=== PATIENT | female | born 1950 | race Caucasian/White ===

== ENCOUNTER → 2017-07-28 | Outpatient (CLI) | payer MEDICARE, OTHER ==
[~2017-07-28] MED LIST: AMLO5 PO; ASCO500 PO; ASPI81EC PO; ATEN50 PO; CHOL10002 PO; CIPR500 PO; CRUTCH4 USE; CVS SENNA PLUS1 EACH PO; Co Q-10100 MG PO; EDARBI40 MG PO; ERGO400 PO; FEBU40TA PO; FERR325 PO; FISH1000 PO; FLUO10 PO; FURO40 PO; FURO80 PO; GABA100 PO; GABA300 PO; HYDACE5 PO; Humalog100 UNIT/1 SC; IBAN2.5 PO; INSULANPEN SC; LEVSOD100 PO; LEVSOD125 PO; LISI5 PO; Lantus100 UNIT/1 SC; METO2.5 PO; METR500 PO; NIAC500 PO; PRAV20 PO; PROM25 PO; Pravachol40 MG PO
== END | disposition home or self-care (01) ==
LOC: LAB 14:13
DX: R30.0 Dysuria (principal)
CPT/HCPCS: 87086

== ENCOUNTER → 2017-08-17 | Outpatient (CLI) | payer MEDICARE, OTHER | END | disposition home or self-care (01) | LOC: LAB 16:52 | DX: N39.0 Urinary tract infection, site not specified (principal) | CPT/HCPCS: 87086 ==

== ENCOUNTER 2017-09-21 12:45 | Day surgery (SDC) | payer MEDICARE, OTHER ==
[~2017-09-21] VITALS: Ht 154.9 cm; Wt 100.6 kg
== END 2017-09-21 15:20 | disposition home or self-care (01) ==
LOC: ORSCSDS 12:45
PROVIDERS: Internal Medicine Gastroenterology
PROC: 0DBK8ZX Excision of Ascending Colon, Via Natural or Artificial Opening Endoscopic, Diagnostic (ICD-10-PCS; principal; 2017-09-21 14:00)
PROC: 0DBL8ZX Excision of Transverse Colon, Via Natural or Artificial Opening Endoscopic, Diagnostic (ICD-10-PCS; principal; 2017-09-21 14:00)
PROC: 0DBC8ZX Excision of Ileocecal Valve, Via Natural or Artificial Opening Endoscopic, Diagnostic (ICD-10-PCS; principal; 2017-09-21 14:00)
DX: Z12.11 Encounter for screening for malignant neoplasm of colon (principal); D12.2 Benign neoplasm of ascending colon; D12.3 Benign neoplasm of transverse colon; K63.5 Polyp of colon; K64.8 Other hemorrhoids; K57.30 Diverticulosis of large intestine without perforation or abscess without bleeding; E11.22 Type 2 diabetes mellitus with diabetic chronic kidney disease; I12.9 Hypertensive chronic kidney disease with stage 1 through stage 4 chronic kidney disease, or unspecified chronic kidney disease; N18.9 Chronic kidney disease, unspecified; E78.5 Hyperlipidemia, unspecified; E03.9 Hypothyroidism, unspecified; I50.9 Heart failure, unspecified; Z87.891 Personal history of nicotine dependence; Z79.82 Long term (current) use of aspirin; Z79.4 Long term (current) use of insulin; Z79.899 Other long term (current) drug therapy; E66.01 Morbid (severe) obesity due to excess calories; Z68.41 Body mass index [BMI] 40.0-44.9, adult
CPT/HCPCS: 82947; 88305; J1980; J7120

== ENCOUNTER 2019-03-17 11:28 | Day surgery (SDC) | payer MEDICARE ==
[~2019-03-17] VITALS: Ht 152.4 cm; Wt 125.1 kg
[~2019-03-17 11:28] MED LIST changes: +B Complex #11 EACH PO; +Bumetanide1 MG PO; +FISH OIL + D31 EACH PO
== END 2019-03-17 13:41 | disposition home or self-care (01) ==
LOC: ORSCSDS 11:28
PROVIDERS: Internal Medicine Gastroenterology
PROC: 0DBK8ZX Excision of Ascending Colon, Via Natural or Artificial Opening Endoscopic, Diagnostic (ICD-10-PCS; principal; 2019-03-17 13:00)
DX: Z12.11 Encounter for screening for malignant neoplasm of colon (principal); Z86.010 Personal history of colon polyps; D12.2 Benign neoplasm of ascending colon; K57.30 Diverticulosis of large intestine without perforation or abscess without bleeding; K64.8 Other hemorrhoids; E11.9 Type 2 diabetes mellitus without complications; E66.01 Morbid (severe) obesity due to excess calories; Z68.43 Body mass index [BMI] 50.0-59.9, adult
CPT/HCPCS: 82947; 88305; J2704; J7120

== ENCOUNTER → 2021-07-30 | Outpatient (CLI) | payer MEDICARE, OTHER ==
[2021-07-30 14:04] LABS: Thyroxine (T4) 9.2 ug/dL (4.8-13.9)
[2021-07-30 14:05] LABS: Albumin, Blood 3.3 g/dL (3.4-5.0); Anion Gap 5 mmol/L (6-16); Blood Urea Nitrogen 33 mg/dL (8-24); Bun/Creatinine Ratio 22.3 (12.0-20.0); CO2, Blood 33 mmol/L (21-32); Calcium, Blood 9.4 mg/dL (8.5-10.1); Chloride, Blood 101 mmol/L (98-108); Creatinine, Blood 1.48 mg/dL (0.40-1.00); Glomerular Filtration Rate 35 (60-); Glucose, Blood 221 mg/dL (70-99); Phosphorus, Blood 2.7 mg/dL (2.5-4.9); Sodium, Blood 139 mmol/L (136-145)
[2021-07-30 14:09] LABS: Alanine Aminotransfer (ALT/SGP 31 U/L (12-78); Albumin, Blood 3.2 g/dL (3.4-5.0); Albumin/Globulin Ratio 0.9 (0.8-1.8); Alk Phos 95 U/L (50-136); Anion Gap 7 mmol/L (6-16); Aspartate Aminotrans (AST/SGOT 20 U/L (12-37); Bilirubin, Total 0.5 mg/dL (0.1-1.0); Blood Urea Nitrogen 35 mg/dL (8-24); CHOL/HDL RATIO 4.2; CO2, Blood 32 mmol/L (21-32); Calcium, Blood 9.7 mg/dL (8.5-10.1); Chloride, Blood 100 mmol/L (98-108); Cholesterol 193 mg/dL (50-200); Globulin, Blood 3.4 g/dL (2.2-4.0); Glomerular Filtration Rate 37 (60-); Glucose, Blood 215 mg/dL (70-99); HDL Cholesterol 46 mg/dL (>39); LDL/HDL RATIO 1.9; Low Density Lipoprotein Chol 89 mg/dL (0-110); Potassium, Blood 4.9 mmol/L (3.5-5.5); Sodium, Blood 139 mmol/L (136-145); Total Protein, Blood 6.6 g/dL (6.4-8.2); Triglycerides 288 mg/dL (30-160); Very Low Density Lipoprot Chol 57 mg/dL (6-32)
== END | disposition home or self-care (01) ==
LOC: LAB SHORT 11:05
PROVIDERS: Family Medicine; Internal Medicine Nephrology
DX: E11.22 Type 2 diabetes mellitus with diabetic chronic kidney disease (principal); N18.30 Chronic kidney disease, stage 3 unspecified; D63.1 Anemia in chronic kidney disease; E03.9 Hypothyroidism, unspecified; R76.9 Abnormal immunological finding in serum, unspecified; R94.5 Abnormal results of liver function studies; R94.6 Abnormal results of thyroid function studies
CPT/HCPCS: 80053; 80061; 80069; 83036; 84100; 84436; 84443; 84480; 85018

== ENCOUNTER 2024-08-18 06:43 | Day surgery (SDC) | payer MEDICARE, OTHER ==
[~2024-08-18 06:43] MED LIST changes: -ATEN50 PO; -Bumetanide1 MG PO; +DULO30 PO; +ELDERBERRY350 MG PO; +FAMO40 PO; +INSULANI SC; -INSULANPEN SC; -LEVSOD125 PO; +LEVSOD150 PO; +Lactated Ringer's 1,000 ML IV SCH; +METO25ER; +PRENATAL TABLE1 EAC2 PO; -Pravachol40 MG PO; +TORSE20 PO; +propofoL 50 ML IV ONE
[2024-08-18 07:15] VITALS: BP 132/56
--- NOTE | 2024-08-18 08:37 | NUR ---
08/18/24 0837 Leroy Quintanilla History, Chart, Medications and Allergies reviewed before start of procedure.MONITOR INTACT WITH CONTINUOUS PULSE OXIMETRY, CONTINUOUS END TITAL CO2, AND INTERMITTENT BLOOD PRESSURE.O2 VIA POM INTACT THROUGHOUT SEDATION/PROCEDURE.3-LEAD EKG REVIEWED WITH PHYSICIAN PRIOR TO START OF PROCEDURE.See Anesthesia record.
[2024-08-18 09:03] VITALS: BP 96/48
[2024-08-18] MEDS ORDERED: Phenylephrine HCl 100 MCG/ML-NS 10MLSYR (1MG/10ML) ONE (09:03)
[2024-08-18 09:18] VITALS: BP 113/73
[2024-08-18 09:33] VITALS: BP 126/70
--- NOTE | 2024-08-18 09:35 | NUR ---
PT VSS. UP WIHTOUT DIFFICULTY WITH A STEADY GAIT. VSS. LACEY WATER. ALLBELONINGS SENT HOME WITH PT. W/C. RIDE HOME.
== END 2024-08-18 23:00 | disposition home or self-care (01) ==
LOC: ORSCMMR 06:43 → ORD 08:00 → ORSCMMR 08:15 → ORD 08:15 → ORSCMMR 23:00
PROVIDERS: Specialist
PROC: 0DBK8ZX Excision of Ascending Colon, Via Natural or Artificial Opening Endoscopic, Diagnostic (ICD-10-PCS; principal; 2024-08-18 08:15)
DX: Z12.11 Encounter for screening for malignant neoplasm of colon (principal); D12.2 Benign neoplasm of ascending colon; K64.8 Other hemorrhoids; K57.30 Diverticulosis of large intestine without perforation or abscess without bleeding; I12.9 Hypertensive chronic kidney disease with stage 1 through stage 4 chronic kidney disease, or unspecified chronic kidney disease; N18.9 Chronic kidney disease, unspecified; I50.9 Heart failure, unspecified; I25.2 Old myocardial infarction; F32.A Depression, unspecified; Z95.1 Presence of aortocoronary bypass graft; E78.5 Hyperlipidemia, unspecified; E03.9 Hypothyroidism, unspecified; Z68.42 Body mass index [BMI] 45.0-49.9, adult; E66.9 Obesity, unspecified; Z79.4 Long term (current) use of insulin; Z79.82 Long term (current) use of aspirin; Z79.899 Other long term (current) drug therapy
CPT/HCPCS: 82947; 88305; J2371; J2704; J7120

== ENCOUNTER → 2024-11-16 | Outpatient (CLI) | payer MEDICARE, OTHER ==
[~2024-11-16] MED LIST changes: -Lactated Ringer's 1,000 ML IV SCH; -propofoL 50 ML IV ONE
== END ==
LOC: LAB 10:43 → LAB SHORT 10:43
DX: L08.9 Local infection of the skin and subcutaneous tissue, unspecified (principal)
CPT/HCPCS: 87070; 87077; 87186; 87205